=== PATIENT | female | born 1995 | race Asian ===

== ENCOUNTER 2016-06-23 08:37 | Emergency (ER) | payer MEDICAID, OTHER ==
[2016-06-23] MEDS ORDERED: NS 0.9% 1000 ML* 2,000 ML IV ONE (08:45)
[2016-06-23] MEDS ORDERED: Ondansetron INJ* 2 MG/ML VIAL IV ONE (08:52)
[2016-06-23] MEDS ORDERED: Ketorolac INJ* 30 MG/ML 1 ML VIAL IV ONE (08:52)
--- NOTE | 2016-06-23 09:32 | RAD ---
HISTORY: Abdominal pain COMPARISONS: CT dated March 08, 2016 VIEWS: Frontal supine and upright views of the abdomen. FINDINGS: BOWEL: There is a nonobstructive bowel gas pattern. There is a moderate amount of stool within the colon. CALCULI: There are no abnormal calculi. BONES AND SOFT TISSUES: There are no osseous abnormalities. OTHER FINDINGS: The lung bases are clear. There is no subphrenic gas. IMPRESSION: NONOBSTRUCTIVE BOWEL GAS PATTERN.
[2016-06-23 10:17] LABS: Hematocrit 35 % (35-47); Hemoglobin 10.4 g/dl (12.0-16.0); Mean Corpuscular HGB Conc 30 g/dl (31-36); Mean Corpuscular Hemoglobin 20 pg (27-31); Mean Platelet Volume 9 um3 (7.4-10.4); Red Cell Distribution Width 19 % (10.5-15); White Blood Count 13.3 10^3/ul (3.5-10.8)
[2016-06-23 10:24] LABS: Comments Flag Yes; Mean Corpuscular Volume 67 fL (80-97)
[2016-06-23 10:37] LABS: ALT 25 U/L (7-52); AST 24 U/L (13-39); Albumin 4.2 g/dL (3.2-5.2); Alkaline Phosphatase 106 U/L (34-104); Amylase 40 U/L (29-103); Anion Gap 8 mmol/L (2-11); BUN/Creatinine Ratio 13.7 (8-20); Blood Urea Nitrogen 7 mg/dL (6-24); C Reactive Protein 15.05 mg/L (< 5.00); CO2 Carbon Dioxide 20 mmol/L (22-32); Calcium 9.3 mg/dL (8.6-10.3); Chloride 105 mmol/L (101-111); EGFR African American 195.8 (>60); EGFR Non-African American 152.2 (>60); Globulin 3.8 g/dL (2-4); Glucose 106 mg/dL (70-100); Lipase 31 U/L (11.0-82.0); Magnesium 1.7 mg/dL (1.9-2.7); Potassium 4.2 mmol/L (3.5-5.0); Sodium 133 mmol/L (133-145)
[2016-06-23] MEDS ORDERED: Magnesium Oxide TAB* 400 MG PO ONE (10:43)
[2016-06-23 10:44] LABS: Urine Bilirubin Negative (Negative); Urine Glucose Negative (Negative); Urine Nitrite Negative (Negative)
[2016-06-23 12:25] VITALS: BP 109/75
--- NOTE | 2016-06-23 13:29 | ED ---
Caroline Silveira Matthew, scribed for Robert Reyes MD on 06/23/16 at 0854 . Abdominal Pain/Female - HPI Summary HPI Summary: A 21 y/o female presents to the ED with sudden, intermittent, diffuse abdominal pain since 03:00 this morning. The pain is rated 9/10 in severity and radiates to the back. Associated symptoms include vomiting - 1x, nausea, and diarrhea - 8x. The patient denies fever, chills, recent travel, and recent Abx. The pain alleviates after a BM. LNMP - 06/05/16. - History of Current Complaint Chief Complaint: EDAbdPain Stated Complaint: ABD PAIN Time Seen by Provider: 06/23/16 08:44 Hx Obtained From: Patient ?: No Onset/Duration: Sudden Onset, Lasting Hours, Still Present Timing: Constant Severity Initially: Moderate Severity Currently: Moderate Pain Intensity: 9 Pain Scale Used: 0-10 Numeric Location: Diffuse Radiates: Yes Radiates to: Back Alleviating Factor(s): Bowel Movement Associated Signs and Symptoms: Positive: Nausea, Vomiting, Diarrhea. Negative: Fever Allergies/Adverse Reactions: Allergies Allergy/AdvReac Type Severity Reaction Status Date / Time Diphenhydramine Allergy Hives Verified 06/23/16 08:38 [From Benadryl] PMH/Surg Hx/FS Hx/Imm Hx Endocrine/Hematology History: Reports: Hx Thyroid Disease History: Reports: Hx Kidney Infection - hx nephrotic disorder Psychiatric History: Reports: Hx Depression, Other Psychiatric Issues/Disorders - hx of cutting - Surgical History Surgery Procedure, Year, and Place: Appendectomy Infectious Disease History: No Infectious Disease History: Denies: Traveled Outside the [place] in Last 30 Days - Family History Known Family History: Positive: Cardiac Disease - Social History Alcohol Use: None Substance Use Type: Reports: None Smoking Status (MU): Never Smoked Tobacco Review of Systems Constitutional: Negative Negative: Fever, Chills Eyes: Negative ENT: Negative Cardiovascular: Negative Respiratory: Negative Positive: Abdominal Pain - Diffuse, Vomiting, Diarrhea, Nausea Genitourinary: Negative Musculoskeletal: Negative Skin: Negative Neurological: Negative Psychological: Normal All Other Systems Reviewed And Are Negative: Yes Physical Exam - Summary Physical Exam Summary: VITAL SIGNS: Reviewed. GENERAL: Patient is an obese female who is in some distress secondary to pain. Patient is not in any acute respiratory distress. HEAD AND FACE: Normocephalic and atraumatic. EYES: PERRLA, EOMI x 2, No injected conjunctiva. EARS: Hearing grossly intact. Ear canals and tympanic membranes are WNL. MOUTH: Oropharynx within normal limits. NECK: Supple, trachea is midline, no adenopathy, no JVD. CHEST: Symmetric, no tenderness at palpation LUNGS: Clear to auscultation bilaterally. No wheezing or crackles. CVS: RRR,, S1 and S2 present, no murmurs or gallops appreciated. ABDOMEN: Soft, positive diffuse tenderness. . No signs of distention. Positive bowel sounds. No rebound no guarding, and no masses palpated. No abdominal bruit or pulsations. EXTREMITIES: FROM in all major joints, no edema, no cyanosis or clubbing. NEURO: Alert and oriented x 3. No acute neurological deficits. Speech is normal. SKIN: Dry and warm Triage Information Reviewed: Yes Vital Signs On Initial Exam: Initial Vitals Temp Pulse Resp BP Pulse Ox 97.6 F 82 16 137/86 100 06/23/16 08:39 06/23/16 08:39 06/23/16 08:39 06/23/16 08:39 06/23/16 08:39 Vital Signs Reviewed: Yes Diagnostics - Vital Signs Vital Signs Temp Pulse Resp BP Pulse Ox 06/23/16 08:39 97.6 F 82 16 137/86 100 - Laboratory Result Diagrams: 06/23/16 08:50 06/23/16 08:50 Lab Statement: Any lab studies that have been ordered have been reviewed, and results considered in the medical decision making process. - Radiology Abdominal XR Xray Interpretation: No Acute Changes - IMPRESSION: NONOBSTRUCTIVE BOWEL GAS PATTERN. Radiology Interpretation Completed By: Radiologist Abdominal Pain Fem Course/Dx - Course Course Of Treatment: A 21 y/o female presents to the ED with sudden, intermittent, diffuse abdominal pain since 03:00 this morning. The pain is rated 9/10 in severity and radiates to the back. Associated symptoms include vomiting - 1x, nausea, and diarrhea - 8x. The patient denies fever, chills, recent travel, and recent Abx. The pain alleviates after a BM. LNMP - 06/05/16. Blood work shows WBC of 13.3, Hgb of 10.4 no bands, CO2 of 20, glucose of 106, c -reactive protein of 15.05 , magnesium of 1.7, which she was given PO magnesium. Urine analysis negative. Abd XR shows nonobstructive bowel gas pattern. In the ED course, the patient was given IV fluids, Zofran, and Toradol for pain. After the patient was hydrate and given the above medications, her symptom shave improved. At this point, the patient is no longer having nausea and the abdominal pain has subsided. She also reports that while she was here she went to the bathroom and had cramping before, but after her cramping alleviated. Since the patient is asymptomatic she will be discharged home without a CT A/P, because at this point I do not believe it is warranted. The patient will be discharged home on Zofran and Bentyl. She will follow-up with her PCP. She is hemodynamically stable and A&Ox3. I discussed all the findings and test results with the patient. Patient was instructed to return to the emergency room immediately if any of the symptoms return or worsens. Plan of care was discussed with the patient and understands and agrees. All questions were answered at patient satisfaction. There were no further complaints or concerns. Lung exam before discharge: CTA B/L. Good air exchange. No wheezing or crackles heard. CVS: S1 and S2 present. No murmurs appreciated. Patient is alert and oriented x 3. Patient is hemodynamically stable. Patient will be discharged home with follow up PCP in the next 2-3 days - Diagnoses Differential Diagnosis: Positive: Other - Gastritis, gastroenteitis, Colitis Provider Diagnoses: Abdominal pain, Nausea & vomiting Discharge - Discharge Plan Condition: Stable Disposition: HOME Prescriptions: Dicyclomine CAP* [Bentyl CAP*] 10 mg PO TID PRN #10 cap PRN Reason: Pain Ondansetron ODT TAB* [Zofran 4 MG Odt TAB*] 4 mg PO Q6H PRN #10 tab.odt PRN Reason: Vomiting Patient Education Materials: Dicyclomine (By mouth), Ondansetron (By mouth), Acute Nausea and Vomiting (ED), Acute Diarrhea (ED), Abdominal Pain (ED) Referrals: [facility] [place] PHYSICIAN REFERRAL [Outside] Additional Instructions: Please follow-up with your primary care physician in 2 days. The documentation as recorded by the Caroline aguilera Matthew accurately reflects the service I personally performed and the decisions made by me, Robert Reyes MD.
== END 2016-06-23 12:23 | disposition home or self-care (01) ==
LOC: ED 08:37
DX: R10.9 Unspecified abdominal pain (principal); R11.2 Nausea with vomiting, unspecified; R19.7 Diarrhea, unspecified
CPT/HCPCS: 36415; 74020; 80053; 81003; 82150; 83690; 83735; 84702; 85025; 86140; 86141; 86703; 99283; J1885; J2405

== ENCOUNTER 2016-12-02 19:06 | Emergency (ER) | payer OTHER ==
[2016-12-02 19:13] VITALS: BP 102/77
[2016-12-02] MEDS ORDERED: Amoxicillin/Clavulanate TAB* 875 MG PO ONE ×2 (20:29→20:31)
[2016-12-02] MEDS ORDERED: HYDROcodone/ACETAMIN 5-325 MG* 1 TAB PO ONE (20:29)
--- NOTE | 2016-12-02 21:14 | ED ---
Carlos Silveira Benjamin, scribed for Bryson Young MD on 12/02/16 at 2023 . HPI Febrile Illness - HPI Summary HPI Summary: 21yo female c/o fever at nights for 6 days. Pt reports temp of 101F. Pt also reports right sided facial swelling, right sided hearing loss, sinus pressure, chest congestion, and cough with yellow phlegm sometimes, and nausea. Denies V/ D. Pt has been taking Tylenol and NyQuil for her symptoms, but they only provide temporary relief and symptoms have been recurring the next day. Hx of chronic nephrotic syndrome. - History of Current Complaint Chief Complaint: EDFever Hx Obtained From: Patient Onset/Duration: Started Days Ago - 6 days ago, Still Present Timing: Intermittent Initial Severity: Mild Current Severity: Moderate Pain Intensity: 7 Pain Scale Used: 0-10 Numeric Aggravating Factors: Nothing Alleviating Factors: Nothing Associated Signs and Symptoms: Cough, Nausea, Swelling - right face - Allergy/Home Medications Allergies/Adverse Reactions: Allergies Allergy/AdvReac Type Severity Reaction Status Date / Time Diphenhydramine Allergy Hives Verified 12/02/16 19:13 [From Benadryl] PMH/Surg Hx/FS Hx/Imm Hx Endocrine/Hematology History: Reports: Hx Thyroid Disease History: Reports: Hx Kidney Infection - hx nephrotic disorder Psychiatric History: Reports: Hx Depression, Other Psychiatric Issues/Disorders - hx of cutting - Surgical History Surgery Procedure, Year, and Place: Appendectomy Infectious Disease History: No Infectious Disease History: Denies: Traveled Outside the [place] in Last 30 Days - Family History Known Family History: Positive: Cardiac Disease Negative: Hypertension - Social History Occupation: Unemployed Lives: With Family Alcohol Use: None Substance Use Type: Reports: None Smoking Status (MU): Never Smoked Tobacco Review of Systems Positive: Fever Eyes: Negative Positive: Ear Ache Cardiovascular: Negative Negative: Chest Pain Positive: Cough. Negative: Shortness Of Breath Positive: Nausea. Negative: Abdominal Pain, Vomiting, Diarrhea Genitourinary: Negative Positive: no symptoms reported Musculoskeletal: Negative Skin: Negative Neurological: Negative Psychological: Normal All Other Systems Reviewed And Are Negative: Yes Physical Exam - Summary Physical Exam Summary: The patient is well-nourished in no acute distress and in no acute pain. The skin is warm and dry and skin color reflects adequate perfusion. There is cellulitis looking lesion in right neck, without any erythema. Area is not hot to touch. HEENT: The head is normocephalic and atraumatic. The pupils are equal and reactive. The conjunctivae are clear and without drainage. Nares are patent and without drainage. Mouth reveals moist mucous membranes and the throat is without erythema and exudate. The external ears are intact. The ear canals are patent and without drainage. The bilateral tympanic membranes are bulging and erythematous. Teeth are intact with no percussion tenderness. Neck is supple with full range of motion and non-tender. There are no carotid bruits. There is no neck vein distension. There are some right sided face and neck swelling. Respiratory: Chest is non-tender. Lungs are clear to auscultation and breath sounds are symmetrical and equal. Cardiovascular: Hear is tachycardic, but regular rhythm. There is no murmur or rub auscultated. There is no peripheral edema and pulses are symmetrical and equal. Abdomen: The abdomen is obese, soft and non-tender. There are normal bowel sounds heard in all four quadrants and there is no organomegaly palpated. Musculoskeletal: There is no back pain noted. Extremities are non-tender with full range of motion. There is good capillary refill. There is no peripheral edema or calf tenderness elicited. Neurological: Patient is alert and oriented to person, place and time. The patient has symmetrical motor strength in all four extremities. Cranial nerves are grossly intact. Deep tendon reflexes are symmetrical and equal in all four extremities. Psychiatric: The patient has an appropriate affect and does not exhibit any anxiety or depression. Triage Information Reviewed: Yes Vital Signs On Initial Exam: Initial Vitals Temp Pulse Resp BP Pulse Ox 99.0 F 122 16 102/77 98 12/02/16 19:08 12/02/16 19:08 12/02/16 19:08 12/02/16 19:08 12/02/16 19:08 Vital Signs Reviewed: Yes Diagnostics - Vital Signs Vital Signs Temp Pulse Resp BP Pulse Ox 12/02/16 19:08 99.0 F 122 16 102/77 98 - Laboratory Lab Statement: Any lab studies that have been ordered have been reviewed, and results considered in the medical decision making process. Course/Dx - Course Course Of Treatment: Reviewed pt's medication list and allergies. Blood pressure noted. - Febrile Illness Differential Diagnoses: Cellulitis, Other: - dental infection, otitis media, bronchitis - Diagnoses Provider Diagnoses: Bilateral acute otitis media, Sinusitis, Facial cellulitis Discharge - Discharge Plan Condition: Stable Disposition: HOME Prescriptions: Amoxicillin/Clavulanate TAB* [Augmentin TAB 875*] 875 mg PO BID #20 tab HYDROcodone/ACETAMIN 5-325 MG* [Currie 5-325 TAB*] 1 tab PO Q6H PRN #20 tab MDD 4 PRN Reason: pain Patient Education Materials: Hydrocodone/Acetaminophen (By mouth), Amoxicillin/ Clavulanate Potassium (By mouth), Cellulitis (ED), Sinusitis (ED), Otitis Media (ED) Referrals: [facility] [place] PHYSICIAN REFERRAL [Outside] The documentation as recorded by the Carlos aguilera Benjamin accurately reflects the service I personally performed and the decisions made by me, Bryson Young MD.
== END 2016-12-02 21:04 | disposition home or self-care (01) ==
LOC: ED 19:06
DX: H66.93 Otitis media, unspecified, bilateral (principal); J32.9 Chronic sinusitis, unspecified; L03.211 Cellulitis of face; R05 Cough; R11.0 Nausea; R50.9 Fever, unspecified; H92.09 Otalgia, unspecified ear
CPT/HCPCS: 99282; A9270-GY

== ENCOUNTER 2016-12-14 18:04 | Emergency (ER) | payer OTHER ==
[2016-12-14 18:09] VITALS: BP 95/79
== END 2016-12-14 19:26 | disposition left against medical advice (07) ==
LOC: ED 18:04
DX: R21 Rash and other nonspecific skin eruption (principal); Z53.21 Procedure and treatment not carried out due to patient leaving prior to being seen by health care provider

== ENCOUNTER 2017-12-31 18:22 | Emergency (ER) | payer OTHER ==
[2017-12-31 19:39] LABS: Urine Appearance Clear; Urine Blood Negative (Negative); Urine Color Straw; Urine Ketones Negative (Negative); Urine Protein Negative (Negative); Urine Red Blood Cell Absent (Absent); Urine Urobilinogen Negative (Negative); Urine White Blood Cell Trace(0-5/hpf) (Absent)
[2017-12-31] MEDS ORDERED: Fluconazole 100 MG TAB* TAB PO ONE (19:58)
[2017-12-31] MEDS ORDERED: Nitrofurantoin Macrocrystals* 100 MG CAP PO ONE (19:59)
--- NOTE | 2017-12-31 20:04 | ED ---
GI/ HPI - HPI Summary HPI Summary: 22-year-old female presents with vaginal itching for the past couple days. She states she thinks she has a yeast infection. She states that she tried Monistat without relief. She states that she is also been having dysuria. She states the burning is worst when she pees. She denies any fevers. No nausea and vomiting. No diarrhea or constipation. She states she gets occasional pelvic pain. Denies any chance STDs. is on nexplanon. - History of Current Complaint Chief Complaint: EDOBProblems Time Seen by Provider: 12/31/17 18:31 Stated Complaint: VAGINAL PAIN Pain Intensity: 0 - Allergy/Home Medications Allergies/Adverse Reactions: Allergies Allergy/AdvReac Type Severity Reaction Status Date / Time diphenhydramine Allergy Hives Verified 12/31/17 18:29 [From Benadryl Allergy] PMH/Surg Hx/FS Hx/Imm Hx Endocrine/Hematology History: Reports: Hx Thyroid Disease Cardiovascular History: Denies: Hx Hypertension History: Reports: Hx Kidney Infection - hx nephrotic disorder Psychiatric History: Reports: Hx Depression, Other Psychiatric Issues/Disorders - hx of cutting - Surgical History Surgery Procedure, Year, and Place: Appendectomy Infectious Disease History: No Infectious Disease History: Denies: Traveled Outside the [place] in Last 30 Days - Family History Known Family History: Positive: Cardiac Disease, Diabetes Negative: Hypertension - Social History Alcohol Use: Occasionally Substance Use Type: Reports: None Smoking Status (MU): Never Smoked Tobacco Review of Systems Negative: Fever Negative: Chest Pain Negative: Shortness Of Breath Positive: Abdominal Pain Positive: dysuria, other - vaginal discharge All Other Systems Reviewed And Are Negative: Yes Physical Exam Triage Information Reviewed: Yes Vital Signs On Initial Exam: Initial Vitals Temp Pulse Resp BP Pulse Ox 98.2 F 80 16 121/82 100 12/31/17 18:27 12/31/17 18:27 12/31/17 18:27 12/31/17 18:27 12/31/17 18:27 Vital Signs Reviewed: Yes Appearance: Positive: Well-Appearing Skin: Positive: Warm, Dry Head/Face: Positive: Normal Head/Face Inspection Eyes: Positive: Normal, Conjunctiva Clear ENT: Positive: Pharynx normal Respiratory/Lung Sounds: Positive: Clear to Auscultation, Breath Sounds Present Cardiovascular: Positive: Normal, RRR Abdomen Description: Positive: Soft, Other: - tenderness suprapubic. Negative: CVA Tenderness (R), CVA Tenderness (L) Pelvic Exam: Positive: External Exam Normal, No Cerv. Motion Tender, Discharge - white Musculoskeletal: Positive: Normal Neurological: Positive: Normal Psychiatric: Positive: Normal Diagnostics - Vital Signs Vital Signs Temp Pulse Resp BP Pulse Ox 12/31/17 18:27 98.2 F 80 16 121/82 100 - Laboratory Lab Results: Lab Results 12/31/17 Range/Units 19:29 Urine Color Straw Urine Appearance Clear Urine pH 7.0 (5-9) Ur Specific [place] 1.010 (1.010-1.030) Urine Protein Negative (Negative) Urine Ketones Negative (Negative) Urine Blood Negative (Negative) Urine Nitrate Negative (Negative) Urine Bilirubin Negative (Negative) Urine Urobilinogen Negative (Negative) Ur Leukocyte Esterase 2+ A (Negative) Urine WBC (Auto) Trace(0-5/hpf) (Absent) Urine RBC (Auto) Absent (Absent) Ur Squamous Epith Cells Present A (Absent) Urine Bacteria Absent (Absent) Urine Glucose Negative (Negative) Lab Statement: Any lab studies that have been ordered have been reviewed, and results considered in the medical decision making process. GIGU Course/Dx - Course Course Of Treatment: 22-year-old female presents with vaginal itching for the past couple days. She states she thinks she has a yeast infection. She states that she tried Monistat without relief. She states that she is also been having dysuria. She states the burning is worst when she pees. She denies any fevers. No nausea and vomiting. No diarrhea or constipation. She states she gets occasional pelvic pain. Denies any chance STDs. On exam has some suprapubic tenderness. Has no cervical motion tenderness. white discharge is present. Will treat this potential yeast infection with Diflucan. Will place on Macrobid for UTI. Will wait for final vaginal cultures to make sure was just a yeast infection. Gave dose of Diflucan here. Patient understands agrees with plan. - Diagnoses Differential Diagnoses - Female: STD, Urinary Tract Infection, Vaginitis Provider Diagnoses: UTI (urinary tract infection), Vaginal discharge Discharge - Sign-Out/Discharge Documenting (check all that apply): Patient Departure - Discharge Plan Condition: Good Disposition: HOME Prescriptions: Nitrofurantoin Monohyd/M-Cryst [Macrobid 100 mg Capsule] 100 mg PO BID #13 cap Patient Education Materials: Urinary Tract Infection in Women (ED) Referrals: Hudson Blanco NP [Primary Care Provider] - Juan R Felder MD [Medical Doctor] - Additional Instructions: Take Macrobid twice a day for 7days, first dose given in ED drink plenty of fluids Follow up with electronic semiconductor processor Return to ED if develop any new or worsening symptoms - Billing Disposition and Condition Condition: GOOD Disposition: Home
[2017-12-31 20:34] VITALS: BP 118/74
== END 2017-12-31 20:34 | disposition home or self-care (01) ==
LOC: ED 18:22
DX: N39.0 Urinary tract infection, site not specified (principal); N89.8 Other specified noninflammatory disorders of vagina
CPT/HCPCS: 81003; 81015; 87086; 87480; 87491; 87510; 87591; 87661; 99283; A9270-GY

== ENCOUNTER → 2018-10-05 19:04 | Emergency (ER) | payer BC, OTHER ==
[~2018-10-05 19:04] MED LIST: DOXYcycline CAP(*) 100 MG PO ONE
--- NOTE | 2018-10-05 20:10 | ED ---
HPI Febrile Illness - HPI Summary HPI Summary: The patient is a 23 y/o F presenting to [facility] with a chief complaint of fevers for the last week that occur only at night. She reports that her symptoms begin with chills and a YU, followed by a fever starting around 2000 or 2100, lasting throughout the night reaching up to 104F. During the night, she has generalized weakness that causes her to be unable to get up. When she wakes up in the morning, the fevers and chills have subsided, but there is still a heaviness in her head that also dissipates throughout the day. She additionally c/o gum swelling, pain, and erythema (possibly secondary to wisdom teeth), and decreased appetite. She denies joint swelling or rash. She doesn't think she was bit by a tick. Currently, her pain is rated 6/10 in severity. Hx of thyroid disease, nephrotic disorder (as child), depression. Nonsmoker, occasional EtOH, no substance use. Lives with daughter and (neither have been recently sick). - History of Current Complaint Chief Complaint: EDFever Time Seen by Provider: 10/05/18 20:00 Hx Obtained From: Patient Onset/Duration: Started Days Ago - one week, Still Present Timing: Intermittent - episodes occuring only at night, Lasting Days Initial Severity: Mild Current Severity: Moderate Pain Intensity: 6 Pain Scale Used: 0-10 Numeric Aggravating Factors: Nothing Alleviating Factors: Nothing Associated Signs and Symptoms: Headache, Weakness - generalized, Other: - POSITIVE: gum swelling, pain, and erythema, decreased appetite; NEGATIVE: joint swelling, rash - Allergy/Home Medications Allergies/Adverse Reactions: Allergies Allergy/AdvReac Type Severity Reaction Status Date / Time diphenhydramine Allergy Hives Verified 10/05/18 19:05 [From Benadryl Allergy] PMH/Surg Hx/FS Hx/Imm Hx Endocrine/Hematology History: Reports: Hx Thyroid Disease Cardiovascular History: Denies: Hx Hypertension History: Reports: Hx Kidney Infection - hx nephrotic disorder Psychiatric History: Reports: Hx Depression, Other Psychiatric Issues/Disorders - hx of cutting - Surgical History Surgical History: Yes Surgery Procedure, Year, and Place: Appendectomy Infectious Disease History: No Infectious Disease History: Denies: Traveled Outside the [place] in Last 30 Days - Family History Known Family History: Positive: Cardiac Disease, Diabetes Negative: Hypertension - Social History Occupation: Employed Full-time Lives: With Family Alcohol Use: Occasionally Hx Substance Use: No Substance Use Type: Reports: None Hx Tobacco Use: No Smoking Status (MU): Never Smoked Tobacco Review of Systems Positive: Fever - max of 104F, Chills Positive: Other - pain, swelling, and erythema of the gums Negative: Cough Positive: Other - decreased appetite. Negative: Abdominal Pain Negative: Edema Negative: Rash Positive: Headache, Weakness - secondary to fevers All Other Systems Reviewed And Are Negative: Yes Physical Exam - Summary Physical Exam Summary: Appearance: Well-appearing, Well-nourished, lying in bed comfortable Skin: Warm, dry, no obvious rash Eyes: sclera anicteric, no conjunctival pallor ENT: Fairly mild gingival inflammation, mucous membranes moist Neck: deferred Respiratory: No signs of respiratory distress Cardiovascular: Appears well perfused, pulses are nml Abdomen: deferred Musculoskeletal: Moving all 4 extremities without obvious discomfort Neurological: Awake and alert, mentation is normal, speech is fluent and appropriate Psychiatric: affect is normal, does not appear anxious or depressed Triage Information Reviewed: Yes Vital Signs On Initial Exam: Initial Vitals Temp Pulse Resp BP Pulse Ox 97.9 F 88 18 134/83 100 10/05/18 19:06 10/05/18 19:06 10/05/18 19:06 10/05/18 19:06 10/05/18 19:06 Vital Signs Reviewed: Yes Diagnostics - Vital Signs Vital Signs Temp Pulse Resp BP Pulse Ox 10/05/18 19:06 97.9 F 88 18 134/83 100 - Laboratory Result Diagrams: 10/05/18 20:30 10/05/18 20:30 Lab Statement: Any lab studies that have been ordered have been reviewed, and results considered in the medical decision making process. - Radiology CXR Radiology Interpretation Completed By: ED Physician, Radiologist Summary of Radiographic Findings: No acute process. ED physician has reviewed this report. Pending official report. Re-Evaluation - Re-Evaluation First Eval Re-Evaluation Time: 21:30 Comment: I discussed results with the patient. We also discussed plan for discharge. Course/Dx - Course Course Of Treatment: The patient is a 23 y/o F presenting to [facility] with a chief complaint of fevers for the last week that occur only at night which start with chills and YU followed by weakness secondary to the fever. All symptoms resolve by morning except for a heaviness in the head which eventually dissipates throughout the day. She additionally c/o gum swelling, pain, and erythema, and decreased appetite. She denies joint swelling or rash and denies known tick bite. Hx of thyroid disease, nephrotic disorder, depression. Upon physical exam , the patient exhibits fairly mild gingival inflammation. Blood work is within normal limits but reveals RBCs of 5.43, Hgb of 11.7, MCV of 68, MCH of 22, RDW of 19, glucose of 112, AST of 59, albumin/globulin ratio of 0.9. UA is negative for infection. Per ED physician read, CXR reveals no acute process. She is diagnosed with fever. She will be discharged home with follow up with Dr. Aragon and rx for Doxycycline. She agrees with this plan. - Diagnoses Provider Diagnoses: Fever Discharge - Sign-Out/Discharge Documenting (check all that apply): Patient Departure - Patient will be discharged home. Patient Received Moderate/Deep Sedation with Procedure: No - Discharge Plan Condition: Stable Disposition: HOME Prescriptions: DOXYcycline CAP(*) [DOXYcycline 100MG CAP(*)] 100 mg PO BID #28 cap Patient Education Materials: Fever in Adults (ED) Referrals: Mahesh JOHNSON,Eriberto Lau [Medical Doctor] - 4 Days (if no better) - Billing Disposition and Condition Condition: STABLE Disposition: Home - Attestation Statements Document Initiated by Monae: Yes Documenting Scribe: Joy Goldman Provider For Whom Monae is Documenting (Include Credential): Dr. Micah Wilkins MD Scribe Attestation: Joy Silveira scribed for Dr. Micah Wilkins MD on 10/06/18 at 1245. Scribe Documentation Reviewed: Yes Provider Attestation: The documentation as recorded by the Joy aguilera accurately reflects the service I personally performed and the decisions made by me, Dr. Micah Wilkins MD Status of Scribmelba Document: Viewed
[2018-10-05 20:46] LABS: Hematocrit 37 % (35-47); Hemoglobin 11.7 g/dL (12.0-16.0); Mean Corpuscular HGB Conc 32 g/dL (31-36); Mean Corpuscular Hemoglobin 22 pg (27-31); Mean Corpuscular Volume 68 fL (80-97); Mean Platelet Volume 7.5 fL (7.4-10.4); Platelet Count 201 10^3/uL (150-450); Red Blood Count 5.43 10^6 /uL (3.70-4.87); Red Cell Distribution Width 19 % (10-15); White Blood Count 3.8 10^3/uL (3.5-10.8)
[2018-10-05 21:01] LABS: Albumin 3.7 g/dL (3.2-5.2); Albumin/Globulin Ratio 0.9 (1-3); BUN/Creatinine Ratio 10.9 (8-20); Calcium 8.9 mg/dL (8.6-10.3); EGFR African American 139.1 (>60); Potassium 3.9 mmol/L (3.5-5.0); Total Bilirubin 0.5 mg/dL (0.2-1.0); Total Protein 7.7 g/dL (6.4-8.9)
[2018-10-05 21:29] LABS: Urine Appearance Clear; Urine Bilirubin Negative (Negative); Urine Blood Negative (Negative); Urine Color Yellow; Urine Glucose Negative (Negative); Urine Ketones Negative (Negative); Urine Nitrite Negative (Negative); Urine Protein Negative (Negative); Urine Specific Gravity 1.019 (1.010-1.030); Urine Urobilinogen Negative (Negative)
[2018-10-05 21:36] LABS: ABS Eosinophils 0.1 10^3/ul (0-0.6); ABS Lymphocytes 2.4 10^3/ul (1.0-4.8); ABS Monocytes 0.2 10^3/ul (0-0.8); ABS Neutrophils 1.1 10^3/ul (1.5-7.7); Eosinophil % 2.1 %; Lymphocyte % 62.6 %; Nucleated Red Blood Cells % 0.1
[2018-10-05 21:37] LABS: Microcytosis 2+
[2018-10-05 21:47] VITALS: BP 117/74
== END | disposition home or self-care (01) ==
LOC: ED 19:04
DX: R50.9 Fever, unspecified (principal); E07.9 Disorder of thyroid, unspecified; Z88.8 Allergy status to other drugs, medicaments and biological substances
CPT/HCPCS: 36415; 71046; 80053; 81003; 85025; 85060; 86618; 87040; 99282; A9270-GY